=== PATIENT | male | born 1940 | race Caucasian/White ===

== ENCOUNTER 2022-02-15 07:15 | Inpatient (IN) | payer OTHER ==
[~2022-02-15] VITALS: Ht 167.6 cm; Wt 77.1 kg
[~2022-02-15 07:15] MED LIST: CATAFLAM50 MG PO; GABAPENTIN100 MG PO; ORPH100T PO; PERCOCET 5/3251 TAB PO; PLAVIX75 MG PO; SIMVASTATIN20 MG PO; SYNTHROID50 MCG PO; XARELTO10 MG PO
[2022-02-15] MEDS ORDERED: SYNTHROID75 MCG PO (09:22)
[2022-02-15] MEDS ORDERED: COZAAR50 MG PO (09:22)
[2022-02-15] MEDS ORDERED: SIMVASTA PO (09:22)
[2022-02-20] MEDS ORDERED: FAMOTIDINE20 MG (16:30)
[2022-02-20] MEDS ORDERED: SILDENAFIL CIT100 MG (16:30)
[2022-02-20] MEDS ORDERED: OMEPRAZOLE40 MG (16:30)
[2022-02-20] MEDS ORDERED: GLYCOPYRROLATE2 MG (16:30)
== END 2022-02-23 20:03 | disposition short-term general hospital, planned readmission (82) | DRG 467 ==
LOC: O/R 02-20 05:35 → SURH 02-20 05:35
PROVIDERS: ADMIT Orthopaedic Surgery; ATTEND Orthopaedic Surgery
PROC: 0SRD0JZ Replacement of Left Knee Joint with Synthetic Substitute, Open Approach (ICD-10-PCS; 2022-02-20)
PROC: 0SPD0JZ Removal of Synthetic Substitute from Left Knee Joint, Open Approach (ICD-10-PCS; principal; 2022-02-20 07:00)
DX: M17.12 Unilateral primary osteoarthritis, left knee (principal); D62 Acute posthemorrhagic anemia; M85.662 Other cyst of bone, left lower leg; Z20.822 Contact with and (suspected) exposure to COVID-19; E03.8 Other specified hypothyroidism; Z86.718 Personal history of other venous thrombosis and embolism

== ENCOUNTER 2022-02-23 21:23 | Emergency (ER) | payer OTHER ==
[~2022-02-23] VITALS: Ht 167.6 cm; Wt 77.1 kg
[~2022-02-23 21:23] MED LIST changes: +COZAAR50 MG PO; +FAMOTIDINE20 MG; +GLYCOPYRROLATE2 MG; +OMEPRAZOLE40 MG; +SILDENAFIL CIT100 MG; +SIMVASTA PO; +SYNTHROID75 MCG PO
== END 2022-02-24 10:19 | disposition home or self-care (01) ==
LOC: ER 21:23
DX: I10 Essential (primary) hypertension (principal); E11.9 Type 2 diabetes mellitus without complications; Z79.84 Long term (current) use of oral hypoglycemic drugs; E03.9 Hypothyroidism, unspecified